=== PATIENT | male | born 1990 | race African-American/Black ===

== ENCOUNTER 2022-01-10 11:06 | Observation (INO) | payer OTHER, SELFPAY ==
[2022-01-10] VITALS (19 sets, daily range): BP systolic 102–128; BP diastolic 68–96; PULSE 73–159; RESP 13–24; TEMP 36.2–36.8; O2SAT 98–100; BMI 27.1
--- NOTE | ~2022-01-10 | XR_ITS ---
EXAMINATION: XR chest 2V DATE: 01/10/2022 12:12 INDICATION: Chest pain. TECHNIQUE: Frontal and lateral views of the chest were obtained. COMPARISON: None. FINDINGS: The chest demonstrates clear lungs without pneumonia, pleural effusion, or pneumothorax. Th e heart size is normal. IMPRESSION: 1. No acute cardiopulmonary disease. Reviewed, dictated and finalized at location A.
--- NOTE | ~2022-01-10 | CT_ITS ---
EXAMINATION: CTA chest PE protocol DATE: 01/11/2022 10:04 CDT INDICATION: Shortness of breath and heart palpitations. TECHNIQUE: Computed tomographic angiography (CTA) of the chest was performed with 100 mL Omnipaque-35 0 intravenous contrast. The dose-length product was 758.35 mGy-cm. Maximum intensity projection 3D-re constructions of the aorta and other arteries were constructed by the technologist on a separate work station. Automated exposure control and iterative reconstruction technique were employed. COMPARISON: Chest x-ray dated 01/10/2022. . FINDINGS: Heart size normal. No significant pleural or pericardial effusion. No thoracic lymphadenopa thy. Study is technically adequate without evidence for pulmonary embolism. The upper abdomen is unre markable. There is a few area of subtle groundglass infiltrates in the right upper lobe, possibly inf ectious/inflammatory. No endobronchial lesions. No pneumothorax. No acute osseous abnormality. IMPRESSION: 1. No evidence for pulmonary embolism. 2: Patchy groundglass infiltrates of the right upper lobe, possibly infectious. Reviewed, dictated and finalized at location A.
--- NOTE | 2022-01-10 11:16 | ECG_ITS ---
Measurements Intervals [place] Rate: 127 P: CT: 0 QRS: 85 QRSD: 88 T: 44 QT: 280 QTc: 407 Interpretive Statements ATRIAL FIBRILLATION WITH RAPID VENTRICULAR RESPONSE AND OCCASIONAL PREMATURE VENTRICULAR CONTRACTIONS VERSUS ABERRANT CONDUCTION BASELINE ARTIFACT DIFFUSE ST ELEVATION, PROBABLY EARLY REPOLARIZATION [ST ELEVATION WITH NORMALLY INFLECTED T WAVE] ABNORMAL ECG NO PREVIOUS ECG AVAILABLE FOR COMPARISON Electronically Signed On 01-10-2022 16:48:10 CDT by Axel Valles M.D.
[2022-01-10] MEDS: dilTIAZem HCl INJ 25 MG/5 ML VIAL 10 MG IV PUSH (11:54)
[2022-01-10] MEDS: ASPIRIN 81 MG CHEWABLE TABLET 324 MG PO (11:54)
[2022-01-10 12:05] LABS: Eosinophils Absolute Auto 0.1 K/mm3 (0-0.3); Hematocrit 44.5 % (42.0-52.0); Hemoglobin 14.6 g/dL (14.0-18.0); Immature Granulocyte Absolute 0.01 K/mm3 (0.00-0.031); Immature Granulocyte Percent A 0.3 % (0-0.5); Lymphocytes Absolute Auto 1.52 K/mm3 (0.9-3.2); Lymphocytes Percent Auto 38.6 % (18.3-44.2); Mean Corpuscular HGB Conc 32.8 g/dl (32-36); Mean Corpuscular Hemoglobin 26.3 pg (26-34); Mean Corpuscular Volume 80.2 fl (80-100); Mean Platelet Volume 10.9 fl (7.4-10.4); Monocytes Absolute Auto 0.4 K/mm3 (0.1-0.6); Monocytes Percent Auto 10.7 % (2.6-8.5); Neutrophils Absolute Auto 1.8 K/mm3 (1.3-6.7); Neutrophils Percent Auto 46.4 % (45.5-73.1); Platelet Count Result 207 k/mm3 (150-375); Red Blood Count 5.55 M/mm3 (4.6-6.20); White Blood Count 3.9 K/mm3 (4.5-10.0)
[2022-01-10] MEDS: Please add drug allergy info to patient profile. XX (12:14)
[2022-01-10 12:15] LABS: INR 1.1; Partial Thromboplastin Time 31.5 SECONDS (22.3-36.8)
[2022-01-10 12:17] LABS: Alanine Aminotransferase 34 U/L (6-50); Albumin Level 4.3 g/dL (3.5-5.1); Alkaline Phosphatase 61 U/L (38-126); Anion Gap 10 mmol/L (8-16); Aspartate Amino Transferase 33 U/L (17-59); Bilirubin,Total 0.7 mg/dL (0.2-1.3); Blood Urea Nitrogen 13 mg/dL (9-20); Calcium 9.1 mg/dL (8.4-10.2); Carbon Dioxide 29 mmol/L (22-30); Chloride 103 mmol/L (98-107); Estimated CRCL calculation 99 ml/min; Estimated Glomerular Filt Rate > 60; Glucose 66 mg/dL (65-110); Lipase 106 U/L (23-300); Potassium 4.2 mmol/L (3.4-5.0); Sodium 142 mmol/L (137-145)
[2022-01-10 12:27] LABS: Troponin I < 0.012 ng/mL (0.000-0.034)
--- NOTE | 2022-01-10 12:27 | ECG_ITS ---
Measurements Intervals [place] Rate: 86 P: [place]: 0 QRS: 76 QRSD: 88 T: 32 QT: 306 QTc: 367 Interpretive Statements ATRIAL FIBRILLATION BASELINE ARTIFACT EARLY REPOLARIZATION [ST ELEVATION WITH NORMALLY INFLECTED T WAVE] ABNORMAL ECG COMPARED TO ECG 01/10/2022 11:13:59 NO SIGNIFICANT CHANGES Electronically Signed On 01-10-2022 16:52:38 CDT by Axel Valles M.D.
--- NOTE | 2022-01-10 12:29 | ED.GENADULT ---
HPI - General Adult General Chief complaint: Chest Pain Stated complaint: chest pain Time Seen by Provider: 01/10/22 11:30 History of Present Illness HPI narrative: 31-year-old male history of reactive airway disease following COVID last year presents emergency room with a sudden onset of palpitations that began last night. Reports palpitations have been constant since last night, endorses some mild shortness of breath. Denies any syncopal episodes chest pain, dizziness, nausea or vomiting. Denies any recreational drug use. Denies fever. Patient states that he occasionally snores but has not been officially diagnosed with sleep apnea. Related Data Home Medications Medication Instructions Recorded Confirmed fluticasone 500 mcg-salmeterol 50 inhalation 01/10/22 mcg/dose blistr powdr for inhalation (Advair Diskus) Allergies Allergy/AdvReac Type Severity Reaction Status Date / Time ciprofloxacin Allergy Unknown Verified 01/10/22 12:01 Quinolones Allergy Unknown Verified 01/10/22 12:00 Review of Systems Review of Systems: CONSTITUTIONAL: Denies fever, chills, or sweats. EYES: Denies visual changes, redness, or discharge. ENT: Denies rhinorrhea, congestion, sore throat, or otalgia. CARDIOVASCULAR: Reports palpitations RESPIRATORY: Denies cough or dyspnea. GASTROINTESTINAL: Denies abdominal pain, nausea, vomiting, or diarrhea. GENITOURINARY: Denies dysuria or hematuria. SKIN: Denies rash or itching. MUSCULOSKELETAL: Denies back pain, joint pain, or myalgia. NEUROLOGIC: Denies headache, numbness, dizziness, or weakness. PSYCHIATRIC: Denies anxiety or depression. PMFSH Family History Family History (Updated 01/10/22 @ 13:41 by Kinjal Lopez NP) Mother Asthma Sibling Asthma Social History Social History (Updated 01/10/22 @ 13:43 by Kinjal Lopez NP) 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 Exam Narrative: GENERAL: Well-appearing, well-nourished, no physical limitations, and in no acute distress. HEAD: Normocephalic, atraumatic. EYES: Conjunctivae normal, PERRLA and EOMI. CHEST: Clear to auscultation. No respiratory distress. No wheezes rales or rhonchi. HEART: Irregular rate and irregular rhythm. No murmur heard. Normal peripheral pulses. ABDOMEN: Soft, nontender, nondistended, normal active bowel sounds. EXTREMITIES: Normal range of motion. No edema. No clubbing or cyanosis SKIN: Warm, dry, no rash. No noted wounds NEURO: No focal deficits. Alert and oriented x3. MAEW. CN's II-XI intact bilaterally, normal gait PSYCH: Cooperative. Normal mood and affect. Course Vital Signs Vital signs: Vital Signs Temperature 36.8 C 01/10/22 11:30 Pulse Rate 130 H 01/10/22 11:30 Respiratory Rate 16 01/10/22 11:30 Blood Pressure 119/69 01/10/22 11:30 Pulse Oximetry 100 01/10/22 11:30 Oxygen Delivery Room Air 01/10/22 11:30 Temperature 36.8 C 01/10/22 11:30 Pulse Rate 77 01/10/22 13:33 Respiratory Rate 17 01/10/22 13:33 Blood Pressure 102/68 01/10/22 13:33 Pulse Oximetry 100 01/10/22 13:33 Oxygen Delivery Room Air 01/10/22 11:30 Medical Decision Making Vital Signs Vital Signs: Vital Signs Temperature 36.8 C 01/10/22 11:30 Pulse Rate 130 H 01/10/22 11:30 Respiratory Rate 16 01/10/22 11:30 Blood Pressure 119/69 01/10/22 11:30 Pulse Oximetry 100 01/10/22 11:30 Oxygen Delivery Room Air 01/10/22 11:30 Temperature 36.8 C 01/10/22 11:30 Pulse Rate 77 01/10/22 13:33 Respiratory Rate 17 01/10/22 13:33 Blood Pressure 102/68 01/10/22 13:33 Pulse Oximetry 100 01/10/22 13:33 Oxygen Delivery Room Air 01/10/22 11:30 Lab Data Result diagrams: 01/10/22 11:58 01/10/22 11:58 Labs: Lab Results 01/10/22 01/10/22 01/10/22 Range/Units 11:58 11:58 11:58 WBC 3.9 L (4.5-10.0) K/mm3 RBC 5.55 (4.6-6.20) M/mm3 Hgb 14.6 (14.0-18.0) g/dL Hct 44.5 (42.0-52.0)
[2022-01-10] MEDS: AMIODARONE 360 MG/D5W 200 ML 360 MG/200 ML BAG 33.33 MG IV CONT (13:30)
--- NOTE | 2022-01-10 13:40 | PM.IMHP ---
H&P: HPI History of Present Illness Date/Time: 01/10/22 13:40 Chief Complaint: Chest pain Narrative: This is a 31-year-old male patient who has a history of reactive airway disease following COVID infection last year. The patient stated he had a sudden onset of palpitations that started last night. It has been constant since last night and had some mild shortness of breath. He denied any dizziness nausea or vomiting. Denies any recreational drug use. The patient states that he occasionally snores but has not been diagnosed with sleep apnea. The patient was found to be in AFib with RVR. The patient was started on an amiodarone drip after being given IV Cardizem and aspirin. Cardiology has been consulted. When I assessed the patient he was in sinus rhythm with heart rate in the 80s. Troponins were negative x3. COVID was negative. Chest x-ray was read as no acute cardiopulmonary disease the patient is being admitted to observation status on the date of service of 01/10/2022.. Review of Systems Review of Systems: See HPI All systems reviewed & are unremarkable except as noted in HPI and below Constitutional: Constitutional: Reports as per HPI and Reports no additional constitutional complaints Eyes: Eyes: Reports as per HPI and Reports no additional eye complaints ENT: Reports system reviewed and no additional complaints, except as documented and Reports Normal hearing present Cardiovascular: Cardiovascular: Reports no additional cardiovascular complaints Respiratory: Respiratory: Reports no additional respiratory complaints and Reports no additional respiratory complaints Gastrointestinal: Gastrointestinal: Reports as per HPI and Reports no additional gastrointestinal complaints Musculoskeletal: Musculoskeletal: Reports no additional musculoskeletal complaints Integumentary/Breasts: Skin/Breast: Reports system reviewed and no additional complaints, except as docu and Reports as per HPI Neurologic: Reports system reviewed and no additional complaints, except as documented, Reports as per HPI and Reports Normal hearing present Psychiatric: Psychiatric: Reports no additional psychiatric complaints and Reports as per HPI Endocrine: Endocrine: Reports no additional endocrine complaints Hematologic/Lymphatic: Hematologic/Lymphatic: Reports no additional hematologic/lymphatic complaints Allergic/Immunologic: Allergic/Immunologic: Reports no additional allergic/immunologic complaints [facility] Past Medical History Medical History Reactive airway disease Surgical History Surgical History No history of previous surgery Family History Family History Mother Asthma Sibling Asthma Social History Social History (Updated 01/10/22 @ 17:36 by Kinjal Lopez NP) Social History: The patient is single. He is from [place]. He has no children. The patient is going [facility] for [employer]. The patient is a lifelong nonsmoker. He lives with a roommate. He is a lifelong nonsmoker. He does not use any marijuana or illicit drugs. Smoking status: Never smoker Alcohol intake: never Substance use: never Substance use type: does not use Has the Lack of Transportation Kept You From Medical Appointments or From Getting Medications?: No Within the Past 12 Months, Were You Worried Whether Your Food Would Run Out Before You Got Money to Buy More?: Never True What is Your Housing Situation Today?: I Have Housing Are You Worried That in the Next 2 Months, You May Not Have Your Own Housing to Live In?: No Do You Have Trouble Paying Your Heating Or Electricity Bill?: No Do You Have Trouble Paying For Medicines?: No Are You Currently Unemployed and Looking for Work?: No Highest Level of Education Completed: Master's Degree or Higher Do Y
[2022-01-10 14:10] LABS: SARS-CoV-2 RNA PCR Negative
[2022-01-10 15:09] LABS: Troponin I < 0.012 ng/mL (0.000-0.034)
--- NOTE | 2022-01-10 15:23 | ADMGEN ---
This patient, Marline Mackey, was admitted to IMU Room 211-01. Patient/family oriented to hospital policies and general routines including ID bracelet, bed and alarms, visiting hours, pain management, procedures, bathroom and other care routines, personal items, smoking policy, room service/diet, and visiting hours. Information on how to activate the Rapid Response Team has been discussed. Patient/Family are encouraged to report perceived risks to care and to ask questions if they do not understand what they are told or what they should do.
--- NOTE | 2022-01-10 15:50 | ECG_ITS ---
Measurements Intervals [place] Rate: 72 P: 54 WI: 188 QRS: 58 QRSD: 92 T: 35 QT: 341 QTc: 373 Interpretive Statements SINUS RHYTHM DIFFUSE ST ELEVATION, PROBABLY EARLY REPOLARIZATION [ST ELEVATION WITH NORMALLY INFLECTED T WAVE] BORDERLINE ECG COMPARED TO ECG 01/10/2022 12:44:44 SINUS RHYTHM HAS REPLACED ATRIAL FIBRILLATION Electronically Signed On 01-10-2022 17:10:13 CDT by Axel Valles M.D.
--- NOTE | 2022-01-10 15:59 | PM.CNCAR ---
Assessment and Plan Assessment and plan (1) Atrial fibrillation: Code(s): I48.91 - Unspecified atrial fibrillation Status: Acute Assessment and Plan: New diagnosis atrial fibrillation with rapid ventricular response. He is now in sinus rhythm. Discontinue amiodarone infusion Start metoprolol tartrate 25 mg q.12 hours Check echo Check TSH Continue telemetry Likely discharge tomorrow after echocardiogram has been reviewed provided he has no recurrence of atrial fibrillation. History of Present Illness History of Present Illness Consult date/time: 01/10/22 15:59 Requesting physician: Ricardo Gallo APRN Consult reason: atrial fibrillation Reason For Visit: Afib New Onset Narrative: Mr. Mackey is a 31-year-old male who presented to the emergency department today with complaints of palpitations and weakness. He states that last night around 9:00 p.m. he started to feel palpitations and some chest discomfort. He tried drinking some water and having food but this did not help. He states that this morning when he was still having symptoms he decided that he needed to come get evaluated. In the emergency department his EKG showed atrial fibrillation with rapid ventricular response. He was given 1 dose of IV push diltiazem but remained tachycardic in atrial fibrillation. He was shifted to amiodarone and converted to sinus rhythm. Currently, he is resting comfortably in his bed in the IMU and has no complaints of any kind. Review of Systems Constitutional: Constitutional: Denies chills, Denies fever(s), Denies headache(s) and Denies malaise Eyes: Eyes: Denies change in vision ENT: Reports Normal hearing present, Denies dizziness, Denies headache(s) and Denies hearing loss Cardiovascular: Cardiovascular: Denies chest pain, Denies chest pain at rest, Denies chest pain with activity, Denies syncope, Denies leg edema, Denies palpitations, Denies dyspnea and Denies dyspnea on exertion Respiratory: Respiratory: Reports cough, Denies dyspnea, Denies dyspnea on exertion and Denies wheezing Gastrointestinal: Gastrointestinal: Denies abdominal pain, Denies constipation and Denies diarrhea Genitourinary: Genitourinary: Denies hematuria and Denies dysuria Musculoskeletal: Musculoskeletal: Denies myalgias, Denies arthralgias and Denies muscle cramps Integumentary/Breasts: Skin/Breast: Denies wounds Neurologic: Reports Normal hearing present, Denies confusion, Denies dizziness, Denies syncope and Denies headache(s) Psychiatric: Psychiatric: Denies anxiety, Denies confusion and Denies depression Endocrine: Endocrine: Denies cold intolerance, Denies flushing, Denies heat intolerance and Denies palpitations Hematologic/Lymphatic: Hematologic/Lymphatic: Denies easy bleeding and Denies easy bruising Allergic/Immunologic: Allergic/Immunologic: Denies wheezing PMFSH Family History Family History Mother Asthma Sibling Asthma Social History Social History (Updated 01/10/22 @ 13:43 by Kinjal Lopez NP) 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[employer] Smoking status: Never smoker Alcohol intake: never Substance use: never Substance use type: does not use Has the Lack of Transportation Kept You From Medical Appointments or From Getting Medications?: No Within the Past 12 Months, Were You Worried Whether Your Food Would Run Out Before You Got Money to Buy More?: Never True What is Your Housing Situation Today?: I Have Housing Are You Worried That in the Next 2 Months, You May Not Have Your Own Housing to Live In?: No Do You Have Trouble Paying Your Heating Or Electricity Bill?: No Do You Have Trouble Paying For Medicines?: No Are You Currently Unemployed and Looking for Work?: No Highest Level of Education Completed: Master's Degree or Higher Do You Have Trouble With Childcare or the Care of a Family Member?: No Spiritual care tomer
[2022-01-10 17:14] LABS: Troponin I < 0.012 ng/mL (0.000-0.034)
[2022-01-10 17:22] LABS: Thyroid Stimulating Hormone 0.699 uIU/mL (0.465-4.680)
[2022-01-10 19:34] LABS: Troponin I < 0.012 ng/mL (0.000-0.034)
[2022-01-10] MEDS: METOPROLOL TARTRATE 25 MG TABLET PO (20:24)
[2022-01-11] VITALS (11 sets, daily range): BP systolic 119–121; BP diastolic 71–74; PULSE 69–85; RESP 14–20; TEMP 36.4–36.6; O2SAT 99–100
[2022-01-11] MEDS: ACETAMINOPHEN 500 MG TABLET 1000 MG PO (00:13)
[2022-01-11 05:02] LABS: Eosinophils Absolute Auto 0.1 K/mm3 (0-0.3); Eosinophils Percent Auto 2.3 % (0-4.4); Hematocrit 44.6 % (42.0-52.0); Hemoglobin 14.4 g/dL (14.0-18.0); Lymphocytes Absolute Auto 1.78 K/mm3 (0.9-3.2); Lymphocytes Percent Auto 45.8 % (18.3-44.2); Mean Corpuscular HGB Conc 32.3 g/dl (32-36); Mean Corpuscular Hemoglobin 26.6 pg (26-34); Mean Corpuscular Volume 82.3 fl (80-100); Mean Platelet Volume 11.1 fl (7.4-10.4); Monocytes Absolute Auto 0.3 K/mm3 (0.1-0.6); Monocytes Percent Auto 8.7 % (2.6-8.5); Neutrophils Absolute Auto 1.6 K/mm3 (1.3-6.7); Neutrophils Percent Auto 42.2 % (45.5-73.1); Platelet Count Result 197 k/mm3 (150-375); Red Blood Count 5.42 M/mm3 (4.6-6.20); Red Cell Distribution Width 13.1 % (11.5-14.5); White Blood Count 3.9 K/mm3 (4.5-10.0)
[2022-01-11 05:44] LABS: Alanine Aminotransferase 31 U/L (6-50); Albumin Level 4.1 g/dL (3.5-5.1); Alkaline Phosphatase 67 U/L (38-126); Anion Gap 7 mmol/L (8-16); Aspartate Amino Transferase 31 U/L (17-59); Bilirubin,Total 0.4 mg/dL (0.2-1.3); Blood Urea Nitrogen 15 mg/dL (9-20); Calcium 8.2 mg/dL (8.4-10.2); Carbon Dioxide 25 mmol/L (22-30); Chloride 106 mmol/L (98-107); Estimated CRCL calculation 96 ml/min; Estimated Glomerular Filt Rate > 60; Glucose 105 mg/dL (65-110); Lipase 124 U/L (23-300); Magnesium 1.9 mg/dL (1.6-2.3); Phosphorus 4.5 mg/dL (2.5-4.5); Potassium 3.8 mmol/L (3.4-5.0); Sodium 138 mmol/L (137-145)
--- NOTE | 2022-01-11 06:00 | ECHO_ITS ---
Patient Info Name: Marline Greer Nshirimira Age: 31 years : 1990 Gender: Male Ht: 73 in Wt: 226 lbs BSA: 2.32 m2 HR: 70 bpm BP: 121 / 71 mmHg Heart Rhythm: Sinus Rhythm Technical Quality: Good Exam Date: 01/11/2022 9:05 AM Exam Location: [facility] Patient Status: Inpatient Admit Date: 01/10/2022 Staff Ordering Physician: Ricardo Gallo APRN Desizing Machine Operator Head End: Adela Saravia RDCS Attending Provider: Aidan Taylor MD Referring Physician: Sabino SPRINGER; Exam Type: CA echo doppler color flow Study Info Indications I48.0 - Paroxysmal atrial fibrillation Complete two-dimensional, color flow and Doppler transthoracic echocardiogram is performed. Summary 1. Complete two-dimensional, color flow and Doppler transthoracic echocardiogram is performed. 2. Left ventricular systolic function is normal, estimated at 55-60%. 3. There is mildly increased left ventricular wall thickness. 4. The left ventricular diastolic function is normal. 5. Right ventricular systolic function is normal. 6. There is mild mitral valve regurgitation. 7. There is mild tricuspid valve regurgitation. Left Ventricle Left ventricular chamber dimension is normal. Left ventricular systolic function is normal, estimated at 55-60%. There is mildly increased left ventricular wall thickness. The left ventricular diastolic function is normal. Right Ventricle Right ventricular chamber dimension is normal. Right ventricular systolic function is normal. Left Atria Left atrial chamber dimension is normal. Right Atria Right atrial chamber dimension is normal. Atrial Septum Intact interatrial septum visualized by color flow imaging. Aortic Valve The aortic valve is probable trileaflet. There is no aortic valve stenosis. There is no aortic valve regurgitation. Pulmonic Valve The pulmonic valve is not well visualized. Mitral Valve The mitral valve has normal leaflets. There is no mitral valve stenosis. There is mild mitral valve regurgitation. Tricuspid Valve The tricuspid valve leaflets are normal. There is no significant tricuspid valve stenosis. There is mild tricuspid valve regurgitation. Pericardium/Pleural There is no pericardial effusion. Inferior Vena Cava Normal inferior vena cava with >50% collapse upon inspiration consistent with normal right atrial pressure, 3 mmHg. Left Ventricular Outflow Tract Name Value Normal LVOT 2D LVOT Diameter 2.4 cm LVOT Doppler LVOT Peak Gradient 3 mmHg LVOT Mean Gradient 2 mmHg LVOT VTI 18 cm LVOT VTI/AV VTI Ratio 1.0 LVOT Stroke Volume 82 ml LVOT CO 5.5 l/min LVOT CI 2.4 l/min/m2 Pulmonic Valve Name Value Normal PV Doppler
[2022-01-11] MEDS: ENOXAPARIN 40 MG/0.4 ML SYRINGE SUB-Q (09:14)
[2022-01-11] MEDS: METOPROLOL TARTRATE 25 MG TABLET PO (09:15)
[2022-01-11] MEDS: FLUTICASONE/SALMETEROL 230-21 MCG INHALER 1 PUFF 2 PUFF INHALATION (10:18)
--- NOTE | 2022-01-11 11:18 | PM.PNCARD ---
Progress Note: A&P Assessment and Plan (1) Atrial fibrillation: Code(s): I48.91 - Unspecified atrial fibrillation Status: Acute Assessment and Plan: Continue Metoprolol 25mg BID. His CHADS VASC score does not meet criteria for anticoagulation. TTE done this AM. If without significant abnormalities, patient can be discharged home today with outpatient Cardiology clinic follow-up. Patient to be discharged on Metoprolol 25mg BID. Time Spent With Patient Time with patient: 15 - 25 minutes Subjective Date/time seen: 01/11/22 11:18 Interval history: Reason for visit: Atrial fibrillation with RVR. Patient remains in sinus rhythm. Has no complaints this AM. Review of Systems Review of Systems: 8-point ROS obtained. Negative, unless stated in HPI. Exam Const: General: comfortable, no acute distress, alert and awake Orientation/consciousness: patient oriented x3 Eyes: General: appearance normal, both eyes and all related structures Neck: Neck: supple Resp: Effort & Inspection: normal respiratory effort Auscultation: clear to auscultation bilaterally Cardio: Rate: regular rate Rhythm: regular rhythm Heart sounds: S1 normal heart sound present, S2 normal heart sound present and no murmurs Skin: General skin exam: normal color Neuro: General: patient oriented x3 Speech: normal speech Extrem: General: no edema Psych: Mental Status: mental status grossly normal Objective Data Vital Signs Vital Signs: Vital Signs - 24 hr 01/10/22 11:30 01/10/22 11:30 01/10/22 11:32 Temperature 36.8 C Pulse Rate 130 H Respiratory Rate 16 Blood Pressure 119/69 119/69 Pulse Oximetry 100 100 Oxygen Delivery Room Air Room Air 01/10/22 11:33 01/10/22 12:07 01/10/22 12:15 Temperature Pulse Rate 159 H 74 81 Respiratory Rate 13 24 H Blood Pressure Pulse Oximetry 100 100 98 Oxygen Delivery 01/10/22 13:10 01/10/22 13:30 01/10/22 13:16 Temperature Pulse Rate 90 78 Respiratory Rate 13 Blood Pressure 102/68 120/76 Pulse Oximetry 100 99 Oxygen Delivery 01/10/22 13:33 01/10/22 13:46 01/10/22 15:05 Temperature Pulse Rate 77 76 73 Respiratory Rate 17 20 16 Blood Pressure 102/68 112/75 128/80 Pulse Oximetry 100 100 100 Oxygen Delivery 01/10/22 15:43 01/10/22 15:25 01/10/22 16:04 Temperature 36.6 C Pulse Rate 76 75 Respiratory Rate 14 Blood Pressure 122/96 H Pulse Oximetry 100 Oxygen Delivery Room Air 01/10/22 16:00 01/10/22 18:00 01/10/22 19:59 Temperature Pulse Rate 78 81 Respiratory Rate Blood Pressure Pulse Oximetry Oxygen Delivery Room Air 01/10/22 20:24 01/10/22 20:00 01/10/22 23:54 Temperature 36.5 C 36.2 C L Pulse Rate 90 87 77 Respiratory Rate 20 20 Blood Pressure 114/70 123/77 Pulse Oximetry 99 100 Oxygen Delivery 01/11/22 00:00 01/10/22 20:00 01/10/22 22:00 Temperature Pulse Rate 90 78 Respiratory Rate Blood Pressure Pulse Oximetry Oxygen Delivery Room Air 01/11/22 00:00 01/11/22 02:00 01/11/22 04:00 Temperature Pulse Rate 78 82 76 Respiratory Rate Blood Pressure Pulse Oximetry Oxygen Delivery 01/11/22 04:00 01/11/22 04:00 01/11/22 06:00 Temperature 36.4 C Pulse Rate 78 78 Respiratory Rate 20 Blood Pressure 121/71 Pulse Oximetry 99 Oxygen Delivery Room Air 01/11/22 08:00 01/11/22 08:00 01/11/22 08:00 Temperature 36.6 C Pulse Rate 71 76 Respiratory Rate 14 Blood Pressure 121/74 Pulse Oximetry 99 Oxygen Delivery Room Air 01/11/22 09:15 01/11/22 10:18 01/11/22 10:00 Temperature Pulse Rate 75 77 Respiratory Rate 16 Blood Pressure Pulse Oximetry Oxygen Delivery Intake/Output Intake/Output: Intake & Output 01/08/22 01/09/22 01/10/22 01/11/22 23:59 23:59 23:59 23:59 Intake Total 85 Output Total 425 Balance -340 Meds/Results Medications: Active Medications Ge
--- NOTE | 2022-01-11 15:47 | PM.DS ---
DS: Admitting Diagnosis Discharge Date 01/11/22 Admitting Diagnosis Palpitations DS: Discharge Diagnosis Discharge Diagnosis (1) Atrial fibrillation: Code(s): I48.91 - Unspecified atrial fibrillation Status: Acute (2) Reactive airway disease: Code(s): J45.909 - Unspecified asthma, uncomplicated Status: Acute DS: Summary Hospital Course Reason for hospitalization: 31yo male with RAD here for palpitations and found to have AFib. Please see H&P for details Hospital Course: Patient presented to the ED. BP stable. HR to 159. WBC 3900 but CBC otherwise normal. Possibly a viral etiology. CMP normal. TSH normal. Trop negative x3. COVID negative. CXR clear and CTA negative for PE but a subtle ground glass infiltrate in the RUL. No fever or cough. [place] PNA less likely. Patient instructed to see the [facility] provider if he develops these symptoms. EKG showing AFib/RVR with diffuse ST elevation probably early repolarization. He was given aspirin. He was started on Diltiazem. and then switched to Amiodarone. Metoprolol added. Patient converted to normal sinus rhythm. Echo showing EF 55-60% with mild increase in LV wall thickness o/w normal. Patient remained in normal sinus on telemetry. He overall did well and was able to be discharged on 01/11/22 Status at Discharge Cognitive/behavioral status at discharge: stable Time Spent with Patient Time attestation: Total time spent providing and/or coordinating discharge services: 32 minutes Time spent: Greater than 30 minutes Exam Narrative: AF 97.8 119/72 73 16 100% ra Gen - NARD Chest - CTA bilaterally, nml RR CV - RRR S1/S2. Tele showing NSR. Abd - Soft, NT/ND, Positive BS Ext - No pedal edema Neuro - Alert and oriented. Nonfocal exam. Psych - Nml mood and affect Skin - Warm and dry DS: Data Data Completed and Pending Labs on day of discharge: Labs from last 24 hours 01/11/22 01/11/22 01/11/22 04:42 04:42 04:38 WBC 3.9 L RBC 5.42 Hgb 14.4 Hct 44.6 MCV 82.3 MCH 26.6 MCHC 32.3 RDW 13.1 Plt Count 197 MPV 11.1 H Immature Gran % (Auto) 0.0 Neut % (Auto) 42.2 L Lymph % (Auto) 45.8 H [place] % (Auto) 8.7 H Eos % (Auto) 2.3 Baso % (Auto) 1.0 Lymph # (Auto) 1.78 [place] # (Auto) 0.3 Eos # (Auto) 0.1 Baso # (Auto) 0.0 Abs Immat Gran (auto) 0.00 Absolute Neuts (auto) 1.6 Absolute Nucleated RBC 0.0 Nucleated RBC % 0.0 Sodium 138 Potassium 3.8 Chloride 106 Carbon Dioxide 25 Anion Gap 7 L BUN 15 Creatinine 1.10 Estim Creat Clear Calc 96 Estimated GFR > 60 Glucose 105 Calcium 8.2 L Phosphorus 4.5 Magnesium 1.9 Ferritin 23.80 Total Bilirubin 0.4 AST 31 ALT 31 Alkaline Phosphatase 67 Troponin I Total Protein 7.0 Albumin 4.1 Lipase 124 TSH TSH (Reflex) 0.710 01/10/22 01/10/22 01/10/22 19:06 16:29 11:58 WBC RBC Hgb Hct MCV MCH MCHC RDW Plt Count MPV Immature Gran % (Auto) Neut % (Auto) Lymph % (Auto) [place] % (Auto) Eos % (Auto) Baso % (Auto) Lymph # (Auto) [place] # (Auto) Eos # (Auto) Baso # (Auto) Abs Immat Gran (auto) Absolute Neuts (auto) Absolute Nucleated RBC Nucleated RBC % Sodium Potassium Chloride Carbon Dioxide Anion Gap BUN Creatinine Estim Creat Clear Calc Estimated GFR Glucose Calcium Phosphorus Magnesium Ferritin Total Bilirubin AST ALT Alkaline Phosphatase Troponin I < 0.012 < 0.012 Total Protein Albumin Lipase TSH 0.699 TSH (Reflex) Discharge Plan Discharge Attending physician on discharge: Patric Hutchinson Consulting providers: Colby Robles Discharging Clinician: Patric Hutchinson Anticipated Discharge Date/Time: 01/11/22 15:58 Patient Disposition: Home
--- NOTE | 2022-01-11 17:32 | PC.NURSE ---
On 01/11/22, the student, Krista Munoz RN, provided care and completed [employer] documentation on this patient. I have reviewed the student's documentation and agree with the findings.
== END 2022-01-11 16:45 | disposition home or self-care (01) ==
LOC: ANHED 11:59 → ANHIMU 15:13
PROVIDERS: Emergency Medicine; Nurse Practitioner; Admitting Provider Family Medicine; Emergency Provider Nurse Practitioner Family; Visit Provider Internal Medicine
DX: I48.91 Unspecified atrial fibrillation (principal); J45.909 Unspecified asthma, uncomplicated; R00.2 Palpitations; I08.1 Rheumatic disorders of both mitral and tricuspid valves; R91.8 Other nonspecific abnormal finding of lung field; Z86.16 Personal history of COVID-19; Z20.822 Contact with and (suspected) exposure to COVID-19; R94.31 Abnormal electrocardiogram [ECG] [EKG]; Z79.51 Long term (current) use of inhaled steroids; Z87.09 Personal history of other diseases of the respiratory system; Z87.898 Personal history of other specified conditions
CPT/HCPCS: 36415; 71046; 71275; 80053; 82728; 83690; 83735; 84100; 84443; 84484; 85025; 85610; 85730; 93005; 93306; 94640; 96365; 96366; 96372; 96375; 99285; A9270; G0378; J0282; J1650; Q9967; U0003; U0005